=== PATIENT | male | born 1995 | race African-American/Black ===

== ENCOUNTER 2017-03-16 14:11 | Emergency (ER) | payer MEDICAID ==
[~2017-03-16] VITALS: Ht 175.3 cm; Wt 59.0 kg
[2017-03-16 14:14] VITALS: BP 136/71
[2017-03-16] MEDS ORDERED: PROMETHAZI6.25 MG/1 ORAL (14:28)
[2017-03-16] MEDS ORDERED: PREDNISONE20 MG ORAL (14:28)
[2017-03-16] MEDS ORDERED: OMEPRAZOLE20 M2 ORAL (14:28)
[2017-03-16 14:36] VITALS: BP 136/71
--- NOTE | 2017-03-16 21:34 | Emergency Room Report ---
History of Present Illness General Chief Complaint: Upper Respiratory Illness Source: Patient Present Illness [facility] The patient is a 21-year-old male presenting for sore throat, cough, and hoarse voice for the past week. He denies any known sick contacts recent travel. He denies any fever or chills. He states cough is dry. Pain is a 6/10 burning sensation to the throat. He denies radiating pain. He denies any other symptoms including nausea, vomiting, rash, shortness of breath Allergies: Coded Allergies: No Known Allergies (Unverified , 03/16/17) Patient History Past Medical History: see triage record Pertinent Family History: none Reviewed Nursing Documentation: PMH: Agreed, PSxH: Agreed Nursing Documentation-PMH Past Medical History: No Stated History Review of Systems All Other Systems: negative except mentioned in HPI Physical Exam Vital Signs Date Time Temp Pulse Resp B/P (MAP) Pulse Ox O2 Delivery O2 Flow Rate FiO2 03/16/17 14:14 98.4 89 18 136/71 98 Room Air Sp02 EP Interpretation: reviewed, normal General Appearance: no apparent distress, alert, GCS 15, non-toxic Head: normocephalic, atraumatic Eyes: bilateral eye normal inspection, bilateral eye PERRL ENT: hearing grossly normal, normal pharynx, no angioedema, normal voice Neck: full range of motion, supple/symm/no masses Respiratory: chest non-tender, lungs clear, normal breath sounds, no wheezing, speaking full sentences Cardiovascular #1: regular rate, rhythm, no edema Musculoskeletal: back normal, gait/station normal, normal range of motion, non- tender Neurologic: alert, oriented x3, responsive, motor strength/tone normal, sensory intact, speech normal Psychiatric: judgement/insight normal, memory normal, mood/affect normal, no suicidal/homicidal ideation Skin: normal color, no rash, warm/dry, well hydrated Lymphatic: no adenopathy Medical Decision Making PA Attestation Dr. James is my supervising physician. Patient management was discussed with my supervising physician Diagnostic Impression: Primary Impression: Laryngitis, acute ER Course The patient is a 21-year-old male presenting for sore throat, cough, and hoarse voice Differential diagnosis include but not limited to laryngitis, pharyngitis, sinusitis, AOM, bronchitis, PNA PE: No apparent distress. No TTP over maxillary or frontal sinuses. Lungs CTA bilat. No wheezing. No accessory muscle use. Heart: RRR, no abnormal heart sounds Ears: external auditory canal clear. Non erythematous. Bilat TM intact. Cone of light present bilat. No bulging of TM. No serous fluid seen. no nasal D/C no anterior cervical lymphad No tonsillar exudate. Uvula midline.Oropharynx non erythematous The patient will be treated for laryngitis and will be discharged home. ER precautions are given Last Vital Signs Date Time Temp Pulse Resp B/P (MAP) Pulse Ox O2 Delivery O2 Flow Rate FiO2 03/16/17 14:36 98.4 89 18 136/71 98 Room Air Status: improved Disposition: HOME, SELF-CARE Condition: Improved Scripts Promethazine Hcl (PROMETHAZINE HCL*) 6.25 Mg/5 Ml Syrup 5 ML ORAL Q6H, #120 ML 0 Refills Prov: MIMI MARTINEZ.A. 03/16/17 Prednisone* (PREDNISONE*) 20 Mg Tablet 20 MG ORAL DAILY, #5 TAB 0 Refills Prov: MIMI MARTINEZ.AMeliza 03/16/17 Omeprazole (OMEPRAZOLE) 20 Mg Capsule.dr 20 MG ORAL DAILY, #30 CAP Prov: TERMIMI LOAIZA P.A. 03/16/17 Referrals: NOT CHOSEN [facility]/MD,REFERRING (PCP) Patient Instructions: Upper Respiratory Infection, Adult Additional Instructions: I discussed my findings with the patient. All questions and concerns have been answered. Treatment and medication compliance have been addressed. I advised the patient that they need to follow up with PMD in 3-5 days. Return to ED if pain remains or worsens, cough worsens or remains, you notice blood in your sputum, you notice wheezing, you experience a fever, or if needed for any reason. Patient verbalized understanding of discharge instructions. MIMI MARTINEZ Mar 16, 2017 21:34
== END 2017-03-16 14:40 | disposition home or self-care (01) ==
LOC: EMR 14:26
DX: J04.0 Acute laryngitis (principal)
CPT/HCPCS: 99284

== ENCOUNTER 2017-04-29 15:52 | Emergency (ER) | payer MEDICAID ==
[~2017-04-29] VITALS: Ht 175.3 cm; Wt 59.0 kg
[~2017-04-29 15:52] MED LIST: OMEPRAZOLE20 M2 ORAL; PREDNISONE20 MG ORAL; PROMETHAZI6.25 MG/1 ORAL
[2017-04-29] MEDS ORDERED: ZITHROMAX250 MG ORAL (16:23)
[2017-04-29] MEDS ORDERED: ROBITUSSIN COU118 M1 PO (16:23)
[2017-04-29 16:30] VITALS: BP 144/80
[2017-04-29] MEDS ORDERED: PROMETHAZI6.25 MG/1 ORAL (17:08)
--- NOTE | 2017-04-29 20:58 | Emergency Room Report ---
History of Present Illness General Chief Complaint: Flu Like Symptoms Source: Patient Present Illness [facility] The patient is a 22-year-old male presenting for continued cough. He was seen in this emergency department approximately 1 month prior and diagnosed with laryngitis. He states the symptoms have persisted. He denies any sick contacts recent travel. He admits to subjective fevers. He denies any other symptoms including N, V, rash, neck pain/stiffness, SAHNI, SOB, CP Allergies: Coded Allergies: No Known Allergies (Unverified , 03/16/17) Patient History Past Medical History: see triage record Pertinent Family History: none Reviewed Nursing Documentation: PMH: Agreed, PSxH: Agreed Nursing Documentation-PMH Past Medical History: No Stated History Review of Systems All Other Systems: negative except mentioned in HPI Physical Exam Vital Signs Date Time Temp Pulse Resp B/P (MAP) Pulse Ox O2 Delivery O2 Flow Rate FiO2 04/29/17 15:56 98.2 88 20 156/98 97 Room Air Sp02 EP Interpretation: reviewed, normal General Appearance: no apparent distress, alert, GCS 15, non-toxic Head: normocephalic, atraumatic Eyes: bilateral eye normal inspection, bilateral eye PERRL ENT: hearing grossly normal, no angioedema, normal voice, uvula midline, tonsillar swelling, pharyngeal erythema Neck: full range of motion, supple/symm/no masses Respiratory: chest non-tender, lungs clear, no respiratory distress, no accessory muscle use Cardiovascular #1: regular rate, rhythm, no edema Musculoskeletal: back normal, gait/station normal, normal range of motion, non- tender Neurologic: alert, oriented x3, responsive, motor strength/tone normal, sensory intact, speech normal Psychiatric: judgement/insight normal, memory normal, mood/affect normal, no suicidal/homicidal ideation Skin: normal color, no rash, warm/dry, well hydrated Lymphatic: adenopathy Medical Decision Making PA Attestation Dr. Tai is my supervising physician. Patient management was discussed with my supervising physician Diagnostic Impression: Primary Impression: Pharyngitis, acute Qualified Codes: J02.9 - Acute pharyngitis, unspecified ER Course The patient is a 22-year-old male presenting for continued cough. Differential diagnosis include but not limited to pharyngitis, sinusitis, AOM, bronchitis, PNA Physical exam: Vitals within normal limits. Afebrile. No apparent distress HEENT exam: There is bilateral tonsillar edema, erythema. Uvula midline. Moist mucous membranes. There is bilateral cervical lymphadenopathy. Lungs are clear to auscultation bilaterally Skin is warm and dry. No rash The patient will be discharged home with a prescription for azithromycin and is given ER precautions. Patient will followup with primary care Last Vital Signs Date Time Temp Pulse Resp B/P (MAP) Pulse Ox O2 Delivery O2 Flow Rate FiO2 04/29/17 16:30 98.2 77 20 144/80 97 Room Air Status: improved Disposition: HOME, SELF-CARE Condition: Improved Scripts Promethazine Hcl (PROMETHAZINE HCL*) 6.25 Mg/5 Ml Syrup 5 ML ORAL Q8H, #120 ML 0 Refills Prov: MIMI MARTINEZ 04/29/17 Azithromycin* (ZITHROMAX*) 250 Mg Tablet 250 MG ORAL DAILY, #6 TAB 0 Refills Take two tables once daily for 1 day, then one tablet once daily for 4 days. Prov: MIMI MARTINEZ 04/29/17 Referrals: NOT CHOSEN [facility]/,REFERRING (PCP) Patient Instructions: Pharyngitis Additional Instructions: I discussed my findings with the patient. All questions and concerns have been answered. Treatment and medication compliance have been addressed. I advised the patient that they need to follow up with PMD in 3-5 days. Return to ED if pain remains or worsens, cough worsens or remains, you notice blood in your sputum, you notice wheezing, you experience a fever, or if needed for any reason. Patient verbalized understanding of discharge instructions. MIMI MARTINEZ Apr 29, 2017 20:58
== END 2017-04-29 16:30 | disposition home or self-care (01) ==
LOC: EMR 16:20
DX: J02.9 Acute pharyngitis, unspecified (principal)
CPT/HCPCS: 99284